=== PATIENT | female | born 1945 | race Caucasian/White ===

== ENCOUNTER → 2017-08-28 | Outpatient (CLI) | payer MEDICARE ==
[2014-06-03 19:48] VITALS: BP 110/58
[~2017-08-28] MED LIST: ASPIR LOW81 MG PO; CARDI-OMEGA1000 MG PO; IMMUNE BOOSTER1 PDS PO; VITAMIN D31000 IU PO
== END ==
LOC: LAB 17:45
DX: N76.0 Acute vaginitis (principal)

== ENCOUNTER → 2017-09-04 | Outpatient (CLI) | payer MEDICARE ==
[2014-06-03 19:48] VITALS: BP 110/58
== END ==
LOC: LAB 10:50
DX: N39.0 Urinary tract infection, site not specified (principal)

== ENCOUNTER → 2017-09-12 | Outpatient (CLI) | payer MEDICARE ==
[2014-06-03 19:48] VITALS: BP 110/58
== END ==
LOC: LAB 18:54
DX: Z02.89 Encounter for other administrative examinations (principal); N39.0 Urinary tract infection, site not specified

== ENCOUNTER → 2017-09-13 | Outpatient (CLI) | payer MEDICARE ==
[2014-06-03 19:48] VITALS: BP 110/58
== END ==
LOC: LAB 18:27
DX: N39.0 Urinary tract infection, site not specified (principal); B96.20 Unspecified Escherichia coli [E. coli] as the cause of diseases classified elsewhere

== ENCOUNTER → 2017-10-10 | Outpatient (CLI) | payer MEDICARE ==
[2014-06-03 19:48] VITALS: BP 110/58
[2017-10-10 22:59] LABS: URINE WBC >50 /hpf (0-3)
== END ==
LOC: LAB 17:41
PROVIDERS: Nurse Practitioner Family
DX: N39.0 Urinary tract infection, site not specified (principal)

== ENCOUNTER → 2020-12-15 | Outpatient (CLI) | payer MEDICARE ==
[2014-06-03 19:48] VITALS: BP 110/58
== END ==
LOC: MAMMO 09:10
DX: Z12.31 Encounter for screening mammogram for malignant neoplasm of breast (principal); N63.10 Unspecified lump in the right breast, unspecified quadrant; N63.20 Unspecified lump in the left breast, unspecified quadrant; R92.0 Mammographic microcalcification found on diagnostic imaging of breast

== ENCOUNTER → 2020-12-26 | Outpatient (CLI) | payer MEDICARE ==
[2014-06-03 19:48] VITALS: BP 110/58
== END ==
LOC: MAMMO 07:45
DX: R92.0 Mammographic microcalcification found on diagnostic imaging of breast (principal); R92.8 Other abnormal and inconclusive findings on diagnostic imaging of breast; Z88.2 Allergy status to sulfonamides; Z88.8 Allergy status to other drugs, medicaments and biological substances

== ENCOUNTER → 2022-12-25 | Outpatient (CLI) | payer MEDICARE | LOC: RAD 09:00 | DX: I51.7 Cardiomegaly (principal); K44.9 Diaphragmatic hernia without obstruction or gangrene; Z87.01 Personal history of pneumonia (recurrent) | CPT/HCPCS: Q9967 ==

== ENCOUNTER 2023-06-20 06:48 | Emergency (ER) | payer MEDICARE ==
[~2023-06-20] VITALS: Wt 72.7 kg
[2023-06-20] MEDS ORDERED: IMVEXXY4 MCG VG (07:04)
[2023-06-20] MEDS ORDERED: PROGESTERO50 MG/1 ML PO (07:04)
[2023-06-20 08:14] LABS: BASO # 0.02 K/mm3 (0.02-0.10); HEMATOCRIT 37.1 % (37.0-47.0); HEMOGLOBIN 13.2 g/dL (12.5-16.0); LYMPH# 1.45 K/mm3 (1.50-4.00); MEAN CELL VOLUME 90 fl (78-100); MEAN CORPUSCULAR HEMOGLOBIN 32 pg (27-31); MEAN CORPUSCULAR HGB CONC 36 g/dL (33-37); MEAN PLATELET VOLUME 9.1 fl (7.4-10.4); MONO # 1.33 K/mm3 (0.20-0.80); NEU # 8.96 K/mm3 (1.40-6.50); PLATELET COUNT 247 K/mm3 (130-400); RED BLOOD COUNT 4.12 M/mm3 (4.10-5.30); RED CELL DISTRIBUTION WIDTH 11.7 % (11.5-14.5); WHITE BLOOD COUNT 11.8 K/mm3 (4.8-10.8)
[2023-06-20 08:15] LABS: ALBUMIN 3.5 g/dL (3.4-4.8)
[2023-06-20 08:16] LABS: CALCIUM 9.8 mg/dL (8.3-10.5)
[2023-06-20 08:18] LABS: TOTAL PROTEIN 7.1 g/dL (6.2-8.1)
[2023-06-20 08:19] LABS: TOTAL BILIRUBIN 1.1 mg/dL (0.2-1.2)
[2023-06-20 08:54] LABS: URINE APPEARANCE HAZY; URINE BILIRUBIN NEGATIVE (NEGATIVE); URINE BLOOD NEGATIVE (NEGATIVE); URINE COLOR YELLOW; URINE GLUCOSE NEGATIVE (NEGATIVE); URINE KETONE 2+ (NEGATIVE); URINE LEUKOCYTE ESTERASE NEGATIVE (NEGATIVE); URINE NITRATE NEGATIVE (NEGATIVE); URINE PROTEIN(semi-quant) NEGATIVE (NEGATIVE); URINE UROBILINOGEN NORMAL (NORMAL); URINE WBC 0-1 /hpf (0-3)
[2023-06-20 08:55] LABS: URINE MUCUS PRESENT (NOT PRESENT)
[2023-06-20] MEDS ORDERED: CEPHALEXIN500 M1 PO (10:16)
[2023-06-20] MEDS ORDERED: DIFLUCAN100 M1 PO (10:16)
[2023-06-20 10:33] VITALS: BP 133/80
== END 2023-06-20 10:35 | disposition home or self-care (01) ==
LOC: ED 06:48
PROVIDERS: Family Medicine
DX: S80.212A Abrasion, left knee, initial encounter (principal); L03.116 Cellulitis of left lower limb; Z28.310 Unvaccinated for COVID-19; W01.0XXA Fall on same level from slipping, tripping and stumbling without subsequent striking against object, initial encounter; Y92.009 Unspecified place in unspecified non-institutional (private) residence as the place of occurrence of the external cause